=== PATIENT | female | born 1950 | race Two or more races ===

== ENCOUNTER 2020-05-03 06:34 | Day surgery (SDC) | payer OTHER ==
[~2020-05-03 06:34] MED LIST: SYNTHROID112 MCG PO; VALSARTAN80 MG PO
[2020-05-03] MEDS ORDERED: ULTRACET PO (09:51)
[2020-05-03] MEDS ORDERED: MACROBID 100 M100 MG PO (09:51)
== END 2020-05-03 16:15 | disposition home or self-care (01) ==
LOC: CIR.AMB 06:34
PROVIDERS: ATTEND Obstetrics & Gynecology Gynecology
DX: N81.11 Cystocele, midline (principal); Z20.822 Contact with and (suspected) exposure to COVID-19